=== PATIENT | female | born 1975 | race Caucasian/White ===

== ENCOUNTER → 2019-10-05 09:30 | Outpatient (CLI) | payer OTHER ==
[2009-10-23 13:49] VITALS: BMI 27.5
[2019-10-05 10:22] LABS: ALBUMIN 3.7 g/dL (3.4-5.0); BILIRUBIN - DIRECT 0.11 mg/dL (0.00-0.30); BILIRUBIN - INDIRECT 0.21 mg/dL (0.00-1.00); BILIRUBIN - TOTAL 0.32 mg/dL (0.2-1.3); PROTEIN - SERUM 7.6 g/dL (6.4-8.2)
== END | disposition home or self-care (01) ==
LOC: D.LAB 09-24 08:45 → D.US 09-24 09:00 → D.LAB 08:00
PROVIDERS: ATTEND Internal Medicine Gastroenterology
DX: K76.0 Fatty (change of) liver, not elsewhere classified (principal)